=== PATIENT | male | born 1950 | race Caucasian/White ===

== ENCOUNTER 2017-09-15 13:18 | Outpatient (CLI) ==
[2017-09-15 13:46] LABS: HEMATOCRIT 47.2 % (42.0-52.0); HEMOGLOBIN 17.1 g/dl (14.0-18.0); MEAN CORPUSCULAR HEMOGLOBIN 32.8 pg (27.0-31.0); MEAN CORPUSCULAR HGB CONC 36.2 (31.8-35.4); MEAN CORPUSCULAR VOLUME 90.6 fl (80.0-94.0); RED BLOOD COUNT 5.21 10^6/ul (4.70-6.10); WHITE BLOOD COUNT 6.32 K/ul (4.2-10.2)
[2017-09-15 13:50] LABS: BILIRUBIN,URINE Negative (NEGATIVE); KETONES,URINE Negative (NEGATIVE); LEUKOCYTE ESTERASE ,URINE Negative (NEGATIVE); NITRITE,URINE Negative (NEGATIVE); PROTEIN,URINE Negative (NEGATIVE); URINE, BLOOD Negative (NEGATIVE)
[2017-09-15 13:51] LABS: ADD URINE MICROSCOPIC NO
[2017-09-15 14:25] LABS: ALBUMIN 3.8 g/dL (3.4-5.0); ALBUMIN/GLOBULIN RATIO 0.95; ANION GAP 13.9; BILIRUBIN,TOTAL 0.5 mg/dL (0.00-1.20); BUN/CREATININE RATIO 10.71; CALCIUM 9.2 mg/dL (8.2-10.2); CREATININE 1.4 mg/dL (0.60-1.10); MAGNESIUM 2.1 mg/dL (1.7-2.2); PHOSPHORUS 3.4 mg/dL (2.3-3.7); POTASSIUM 3.9 mmol/L (3.5-5.1); TOTAL PROTEIN 7.8 g/dL (5.8-8.1); URIC ACID 9.1 mg/dL (2.6-7.2)
[2017-09-16 08:12] LABS: URINE CREATININE 44.4 mg/dL (Not Estab.); URINE MALB/CR RATIO 29.3 mg/g creat (0.0-30.0)
== END 2017-09-15 13:19 | disposition home or self-care (01) ==
LOC: LAB 13:18
PROVIDERS: ATTEND Nurse Practitioner Family
DX: N18.3 Chronic kidney disease, stage 3 (moderate) (principal); I10 Essential (primary) hypertension
CPT/HCPCS: 36415; 80053; 81001; 82043; 82306; 83735; 83970; 84100; 84550; 85027

== ENCOUNTER 2018-04-04 15:22 | Outpatient (CLI) | END 2018-04-04 15:23 | disposition home or self-care (01) | LOC: LAB 15:22 | PROVIDERS: ATTEND Nurse Practitioner Family | DX: N18.3 Chronic kidney disease, stage 3 (moderate) (principal); I10 Essential (primary) hypertension | CPT/HCPCS: 36415; 80053; 81001; 82306; 82570; 83970; 84156; 84550; 85027 ==

== ENCOUNTER 2019-03-27 14:49 | Outpatient (CLI) | END 2019-03-27 14:50 | disposition home or self-care (01) | LOC: LAB 14:49 | PROVIDERS: ATTEND Nurse Practitioner Family | DX: N18.3 Chronic kidney disease, stage 3 (moderate) (principal); I10 Essential (primary) hypertension | CPT/HCPCS: 36415; 80053; 81001; 82570; 84156; 85027 ==